=== PATIENT | male | born 1995 | race Caucasian/White ===

== ENCOUNTER 2021-07-21 16:46 | Emergency (ER) | payer OTHER, BC, SELFPAY ==
[2021-07-21 17:01] VITALS: BP 121/65; PULSE 81; RESP 16; TEMP 37.4; O2SAT 100
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
== END 2021-07-21 17:55 | disposition home or self-care (01) ==
PROVIDERS: Emergency Provider Nurse Practitioner Family
DX: S09.90XA Unspecified injury of head, initial encounter (principal); W22.8XXA Striking against or struck by other objects, initial encounter; Y99.0 Civilian activity done for income or pay; I48.91 Unspecified atrial fibrillation
CPT/HCPCS: 99213; G0463

== ENCOUNTER 2023-09-06 08:17 | Emergency (ER) | payer OTHER, BC, SELFPAY ==
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
[2023-09-06 08:17] VITALS: BP 140/85; PULSE 99; RESP 20; TEMP 36.3; O2SAT 99
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
[2023-09-06] MEDS: IBUPROFEN 600 MG TABLET PO (08:54)
== END 2023-09-06 09:05 | disposition home or self-care (01) ==
PROVIDERS: Emergency Provider Emergency Medicine
DX: S16.1XXA Strain of muscle, fascia and tendon at neck level, initial encounter (principal); V49.40XA Driver injured in collision with unspecified motor vehicles in traffic accident, initial encounter
CPT/HCPCS: 72125; 99284; A9270